=== PATIENT | female | born 1990 | race African-American/Black ===

== ENCOUNTER 2025-02-04 09:23 | Emergency (ER) | payer MEDICAID ==
[~2025-02-04] VITALS: Ht 167.6 cm; Wt 123.0 kg
[2025-02-04 09:34] VITALS: O2SAT 98
[2025-02-04] MEDS ORDERED: CYCL10TA21 MT (11:19)
[2025-02-04] MEDS ORDERED: IBUP-1455 MT (11:19)
[2025-02-04 11:31] VITALS: TEMP 36.9; O2SAT 100
[2025-02-04 11:33] VITALS: BP 122/86; PULSE 65; RESP 16
[2025-02-04] MEDS: KETOROLAC 30MG/ML VIAL IM ONE (11:33)
== END 2025-02-04 11:34 | disposition home or self-care (01) ==
LOC: ER 09:23
DX: M25.511 Pain in right shoulder (principal); Z88.0 Allergy status to penicillin
CPT/HCPCS: 99283; 81025; 73030; 96372; J1885; A4565